=== PATIENT | female | born 1960 | race Caucasian/White ===

== ENCOUNTER → 2023-11-04 09:43 | Outpatient (REF) | payer OTHER, SELFPAY | LOC: HWWDC 09:43 | PROVIDERS: ATTENDING PHYSICIAN Nurse Practitioner Obstetrics & Gynecology; FAMILY PHYSICIAN Internal Medicine | DX: Z12.31 Encounter for screening mammogram for malignant neoplasm of breast (principal) | CPT/HCPCS: 77063; 77067 ==

== ENCOUNTER 2023-11-22 18:43 | Emergency (ER) | payer OTHER, SELFPAY ==
[2023-11-22 18:56] VITALS: BP 150/90
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
[2023-11-22] MEDS: FLEXERIL 10 MG PO (21:18)
== END 2023-11-22 21:37 | disposition home or self-care (01) ==
LOC: EMR 18:43
PROVIDERS: EMERGENCY PHYSICIAN Student in an Organized Health Care Education/Training Program; FAMILY PHYSICIAN Internal Medicine
DX: S16.1XXA Strain of muscle, fascia and tendon at neck level, initial encounter (principal); V89.2XXA Person injured in unspecified motor-vehicle accident, traffic, initial encounter; Y92.410 Unspecified street and highway as the place of occurrence of the external cause; F41.8 Other specified anxiety disorders
CPT/HCPCS: 99282

== ENCOUNTER → 2024-11-26 14:52 | Outpatient (REF) | payer BC, SELFPAY | LOC: HWWDC 14:52 | PROVIDERS: ATTENDING PHYSICIAN Internal Medicine | DX: Z12.31 Encounter for screening mammogram for malignant neoplasm of breast (principal) | CPT/HCPCS: 77063; 77067 ==